=== PATIENT | male | born 1975 | race Caucasian/White ===

== ENCOUNTER 2020-10-14 02:59 | Emergency (ER) | payer BC ==
[~2020-10-14 02:59] MED LIST: ULTRAM50 MG PO
[2020-10-14] MEDS ORDERED: ERYTHROMYCIN O3.5 GM OU (04:12)
== END 2020-10-14 04:25 | disposition home or self-care (01) ==
LOC: ER1 02:59
DX: H57.11 Ocular pain, right eye (principal); Z88.1 Allergy status to other antibiotic agents
CPT/HCPCS: 99283

== ENCOUNTER 2021-01-02 20:49 | Emergency (ER) | payer BC ==
[~2021-01-02 20:49] MED LIST changes: +ERYTHROMYCIN O3.5 GM OU
[2021-01-02 21:15] LABS: HEMOGLOBIN 18.4 gm/dl (14.0-17.5); RED BLOOD COUNT 5.8 M/UL (4.20-5.50); WHITE BLOOD COUNT 17.1 K/UL (4.5-11.0)
[2021-01-02 21:37] LABS: BUN/CREATININE RATIO 14 (0-10)
[2021-01-02] MEDS ORDERED: PHENERGAN 25 MG25 M1 PO (23:26)
== END 2021-01-02 23:41 | disposition home or self-care (01) ==
LOC: ER1 20:49
PROVIDERS: Family Medicine
DX: R10.10 Upper abdominal pain, unspecified (principal); I73.9 Peripheral vascular disease, unspecified; Z88.1 Allergy status to other antibiotic agents; Z90.89 Acquired absence of other organs
CPT/HCPCS: 80053; 83690; 85025; 96374; 96375; 99284; C9113; J2270; J2405; J2550; J7030; Q9967

== ENCOUNTER 2021-08-08 01:08 | Emergency (ER) | payer BC ==
[~2021-08-08 01:08] MED LIST changes: +PHENERGAN 25 MG25 M1 PO
[2021-08-08 02:00] LABS: RED BLOOD COUNT 5.07 M/UL (4.20-5.50); WHITE BLOOD COUNT 6.3 K/UL (4.5-11.0)
[2021-08-08 02:23] LABS: BUN/CREATININE RATIO 11 (0-10)
[2021-08-08] MEDS ORDERED: LODINE CAP 300300 MG PO (05:19)
[2021-08-08] MEDS ORDERED: PROVENTIL HFA6.7 GM INH (05:19)
[2021-08-08] MEDS ORDERED: BENZONATATE100 MG PO (05:19)
== END 2021-08-08 05:25 | disposition home or self-care (01) ==
LOC: ER1 01:08
PROVIDERS: Emergency Medicine
DX: U07.1 COVID-19 (principal); I51.9 Heart disease, unspecified; Z88.1 Allergy status to other antibiotic agents
CPT/HCPCS: 0240U; 80048; 85025; 99283

== ENCOUNTER → 2022-04-11 | Outpatient (CLI) | payer BC ==
[~2022-04-11] MED LIST changes: +BENZONATATE100 MG PO; +LODINE CAP 300300 MG PO; +PROVENTIL HFA6.7 GM INH
== END ==
LOC: KOH-I 12:53
DX: M54.50 Low back pain, unspecified (principal); M47.816 Spondylosis without myelopathy or radiculopathy, lumbar region
CPT/HCPCS: 72100